=== PATIENT | male | born 1965 | race Two or more races ===

== ENCOUNTER 2018-06-15 10:02 | Day surgery (SDC) | payer MEDICAID ==
[2018-06-15] MEDS ORDERED: MIDAZOLAM HCL 2 MG/2ML VIAL ONE (11:06)
[2018-06-15] MEDS ORDERED: HYDROMORPHONE INJ 2 MG/ML DISP.SYRIN ONE (11:06)
[2018-06-15] MEDS ORDERED: BUPIVACAINE 0.5 % PF 150 MG/30 ML VIAL ONE (11:07)
[2018-06-15] MEDS ORDERED: ROCURONIUM BROMIDE 50 MG/5 ML ONE (11:07)
[2018-06-15] MEDS ORDERED: EPINEPHRINE (1:1000) 1 MG/ML AMPUL ONE (11:22)
[2018-06-15] MEDS ORDERED: BUPIVACAINE 0.25% 75 MG/30 ML VIAL ONE (12:27)
== END 2018-06-15 13:45 | disposition home or self-care (01) ==
LOC: DS 10:02
PROVIDERS: ATTEND Specialist
DX: M75.42 Impingement syndrome of left shoulder (principal); M19.012 Primary osteoarthritis, left shoulder; Z98.890 Other specified postprocedural states; Z82.49 Family history of ischemic heart disease and other diseases of the circulatory system; Z83.3 Family history of diabetes mellitus; Z79.899 Other long term (current) drug therapy
CPT/HCPCS: 23410; 29824; 88304; 88311; A4217; A6253; A6402; J0171; J0690; J1100; J1170; J1885; J2250; J2405; J2704; J2710; J3490 ×4